=== PATIENT | female | born 1945 | race Native Hawaiian/Other Pacific Islander ===

== ENCOUNTER 2020-11-09 19:43 | Emergency (ER) | payer OTHER ==
[~2020-11-09] VITALS: Ht 165.1 cm; Wt 77.1 kg
[2020-11-09 19:43] VITALS: BP 156/63; TEMP 98.4
[2020-11-09 20:15] LABS: PLATELET COUNT 166 K/uL (152-353)
[2020-11-09 20:23] LABS: POTASSIUM 3.9 mmol/L (3.6-5.2)
[2020-11-09] MEDS ORDERED: [UNRECOGNIZED DRUG - OTHER] PO (23:54)
[2020-11-09] MEDS ORDERED: DIVALPROEX125 MG PO (23:55)
[2020-11-09] MEDS ORDERED: DIVALPROEX250 M1 PO (23:56)
[2020-11-09] MEDS ORDERED: LEXAPRO20 MG PO (23:57)
[2020-11-09] MEDS ORDERED: FLUTICASON50 MCG/AC1 INH (23:58)
[2020-11-09] MEDS ORDERED: NEURONTIN 100M100 MG PO (23:59)
[2020-11-10] MEDS ORDERED: EUTHYROX75 MCG PO
[2020-11-10] MEDS ORDERED: HYDRALAZINE50 MG PO
[2020-11-10] MEDS ORDERED: NAMENDA10 MG PO (00:02)
[2020-11-10] MEDS ORDERED: QUETIAPINE25 MG PO ×3 (00:02→00:05)
[2020-11-10] MEDS ORDERED: VALS160T2 PO (12:22)
[2020-11-10] MEDS ORDERED: TYLENOL325 MG PO (12:23)
[2020-11-10] MEDS ORDERED: CLON0.1T16 PO (12:24)
[2020-11-10] MEDS ORDERED: DIAZ2TAB PO (12:24)
[2020-11-10] MEDS ORDERED: DOK100 MG PO (12:25)
[2020-11-10] MEDS ORDERED: TRAMADOL HYDROC50 MG PO (12:26)
== END 2020-11-09 21:29 | disposition other institution (70) ==
LOC: ED 19:43
PROVIDERS: Family Medicine
DX: F22 Delusional disorders (principal); Z11.52 Encounter for screening for COVID-19; Z04.6 Encounter for general psychiatric examination, requested by authority
CPT/HCPCS: 36415; 80053; 85027; 87635; 93005; 99283; U0003